=== PATIENT | male | born 1965 | race Two or more races ===

== ENCOUNTER 2024-08-23 12:28 | Emergency (ER) | payer MEDICAID, OTHER ==
[2024-08-23 15:05] VITALS: BP 138/68; PULSE 84; RESP 18; TEMP 98.9; O2SAT 99
== END 2024-08-23 15:07 | disposition left against medical advice (07) ==
LOC: EDBD 12:28 → ER 12:33
DX: M25.552 Pain in left hip (principal); Z53.21 Procedure and treatment not carried out due to patient leaving prior to being seen by health care provider

== ENCOUNTER 2024-09-05 03:46 | Emergency (ER) | payer MEDICAID ==
[~2024-09-05] VITALS: Ht 177.8 cm; Wt 65.4 kg
[2024-09-05 05:24] VITALS: BP 149/78; PULSE 55; RESP 20; TEMP 98; O2SAT 99
== END 2024-09-05 05:27 | disposition home or self-care (01) ==
LOC: ER 03:46
DX: S46.811A Strain of other muscles, fascia and tendons at shoulder and upper arm level, right arm, initial encounter (principal); S16.1XXA Strain of muscle, fascia and tendon at neck level, initial encounter; S70.01XA Contusion of right hip, initial encounter; V09.9XXA Pedestrian injured in unspecified transport accident, initial encounter; Y93.01 Activity, walking, marching and hiking; Y92.89 Other specified places as the place of occurrence of the external cause; Y99.8 Other external cause status
CPT/HCPCS: 72125; 73030; 73502